=== PATIENT | male | born 1995 | race Caucasian/White ===

== ENCOUNTER 2017-09-23 23:20 | Emergency (ER) | payer SELFPAY ==
[2017-09-23 23:20] VITALS: BMI 24.3
[2017-09-23 23:37] VITALS: O2SAT 98
--- NOTE | 2017-09-24 00:23 | C.PDOC ---
History Of Present Illness 22 year old male presents to the ED for evaluation of fever, headache, generalized body aches, cough, cold and congestion which began 2 days ago. Patient reports Tmax of 103. Patient reports taking Ibuprofen prior to arrival. He denies nausea, vomiting, diarrhea. Time Seen by Provider: 09/23/17 23:46 Chief Complaint (Nursing): Flu-like Symptoms History Per: Patient History/Exam Limitations: no limitations Onset/Duration Of Symptoms: Days (2) Current Symptoms Are (Timing): Still Present Location Of Pain: Diffuse Myalgias Associated Symptoms: Fever, Cough, Nasal Congestion. denies: Nausea, Vomiting, Diarrhea Additional History Per: Patient Past Medical History Reviewed: Historical Data, Nursing Documentation, Vital Signs Vital Signs: Last Vital Signs Temp 98.4 F 09/24/17 00:46 Pulse 98 H 09/24/17 00:46 Resp 18 09/24/17 00:46 BP 138/80 09/24/17 00:46 Pulse Ox 98 09/24/17 05:15 - Medical History PMH: No Chronic Diseases Surgical History: No Surg Hx Family History: States: Unknown Family Hx - Social History Hx Alcohol Use: No Hx Substance Use: No - Immunization History Hx Tetanus Toxoid Vaccination: No Hx Influenza Vaccination: No Hx Pneumococcal Vaccination: No Review Of Systems Constitutional: Positive for: Fever ENT: Positive for: Nose Congestion Respiratory: Positive for: Cough Gastrointestinal: Negative for: Nausea, Vomiting, Diarrhea Musculoskeletal: Positive for: Other (generalized body aches ) Neurological: Positive for: Headache Physical Exam - Physical Exam Appears: Non-toxic, No Acute Distress Skin: Normal Color, Warm, Dry Head: Atraumatic, Normacephalic Eye(s): bilateral: Normal Inspection Ear(s): Bilateral: Normal Nose: Normal, No Discharge Oral Mucosa: Moist Throat: Normal, No Erythema, No Exudate Neck: Supple Chest: Symmetrical, No Deformity, No Tenderness Cardiovascular: Rhythm Regular, No Murmur Respiratory: Normal Breath Sounds, No Rales, No Rhonchi, No Wheezing Extremity: Normal ROM, Capillary Refill (less than 2 seconds ) Neurological/Psych: Oriented x3, Normal Speech, Normal Cognition ED Course And Treatment O2 Sat by Pulse Oximetry: 98 (on RA ) Pulse Ox Interpretation: Normal Medical Decision Making Medical Decision Making: flu like symptms x 1 day with fever to 103, tx with tamiflu. Disposition Counseled Patient/Family Regarding: Diagnosis, Need For Followup, Rx Given - Disposition Referrals: [facility] [Outside] Disposition: HOME/ ROUTINE Disposition Time: 00:51 Condition: GOOD Additional Instructions: Drink increased fluids- at least 64 oz per day. Tylenol or Motrin for fever and pain every 4-6 hours. Increased best rest. Follow up with your doctor or in medical clinic next week. Prescriptions: Oseltamivir Phosphate [Tamiflu] 75 mg PO BID #9 capsule Instructions: Flu, Adult (DC) Forms: General Discharge Instructions, [facility] (Sinhala), Work Excuse - Clinical Impression Clinical Impression: Influenza-like illness - PA / X RAY PHYSICIAN / Resident Statement MD/DO has reviewed & agrees with the documentation as recorded. - Scribe Statement The provider has reviewed the documentation as recorded by the Scribe (Merly Grubbs) All medical record entries made by the Scribe were at my direction and personally dictated by me. I have reviewed the chart and agree that the record accurately reflects my personal performance of the history, physical exam, medical decision making, and the department course for this patient. I have also personally directed, reviewed, and agree with the discharge instructions and disposition.
[2017-09-24 00:46] VITALS: BP 138/80; PULSE 98; RESP 18; TEMP 98.4
== END 2017-09-24 01:00 | disposition home or self-care (01) ==
LOC: C.ER 23:20
DX: J11.1 Influenza due to unidentified influenza virus with other respiratory manifestations (principal)